=== PATIENT | male | born 1935 | race Caucasian/White ===

== ENCOUNTER 2016-03-29 23:26 | Emergency (ER) | payer OTHER, BC ==
[2016-03-30 00:33] LABS: % IMMATURE GRANULYOCYTES 0.3 % (0.0-1.1); ABSOLUTE IMMATURE GRANULOCYTES 0.03 10^3/uL (0.00-0.10); ADD DIFF? NO; ADD MORPH? NO; ADD SCAN? NO; ATYPICAL LYMPHOCYTE FLAG 0 (0-99); FRAGMENT RBC FLAG 0 (0-99); HEMATOCRIT 49.5 % (40.0-51.0); HEMOGLOBIN 17.2 g/dL (13.7-17.5); LEFT SHIFT FLG 0 (0-99); LIPEMIA HEMOLYSIS FLAG 90 (0-99); MEAN CELL HEMOGLOBIN 31.7 pg (27.9-34.1); MEAN CELL HEMOGLOBIN CONCENTR. 34.7 g/dL (32.4-36.7); MEAN CELL VOLUME 91.2 fL (81.5-99.8); MEAN PLATELET VOLUME 9.5 fL (8.7-11.7); PLATELET CLUMPS FLAG 0 (0-99); PLATELET COUNT 218 10^3/uL (150-400); RED BLOOD CELL COUNT 5.43 10^6/uL (4.40-6.38); RED CELL DISTRIBUTION WIDTH 13.2 % (11.5-15.2)
[2016-03-30 00:55] LABS: COLOR YELLOW; LEUKOCYTE ESTERASE,URINE TRACE (NEGATIVE); NITRITE,URINE NEGATIVE (NEGATIVE)
[2016-03-30 00:58] LABS: MUCUS TRACE /lpf (NONE-1+); RBC,URINE 50-182 /hpf (0-3); WBC,URINE 15-25 /hpf (0-3)
[2016-03-30 01:01] LABS: ANION GAP 9 mEq/L (8-16); CALCIUM 8.8 mg/dL (8.5-10.4); CARBON DIOXIDE 26 mEq/l (22-31); CHLORIDE 107 mEq/L (97-110); CREATININE 0.8 mg/dL (0.7-1.3); GLOMERULAR FILTRATION RATE > 60; GLUCOSE 132 mg/dL (70-100); POTASSIUM 4.5 mEq/L (3.5-5.2); SODIUM 142 mEq/L (134-144)
[2016-03-30] MEDS ORDERED: OXYCODONE/APAP 5/325MG PREPACK#4 BTL TAKEHOME ONE (02:30)
--- NOTE | 2016-03-30 02:31 | EDPHY ---
HPI/HX/ROS/PE/MDM Narrative: Chief complaint left-sided abdominal pain HPI: 72-year-old male with a past medical history of renal calculi woke this morning with left-sided abdominal pain. Pain was up to a 7 or 8/10. Over the last 3 or 4 hours it has gotten improved. States that now he is not currently having pain. Pain was nonradiating. No fevers or chills. Some nausea no vomiting. No diarrhea. No chest pain or shortness of breath. No hematuria or urinary symptoms. ROS: 10 point Review of Systems is negative except as noted in the HPI. Physical exam: Gen: Awake, Alert, No Distress HEENT: Nose: no rhinorrhea Eyes: PERRLA, EOMI Mouth: Moist mucosa Neck: Supple, no JVD Chest: nontender, lungs clear to auscultation Heart: S1, S2 normal, no murmur Abd: Soft, non-tender, no guarding Back: no CVA tenderness, no midline tenderness Ext: no edema, non-tender Skin: no rash Neuro: CN II-XII intact, Sensation grossly intact, Strength 5/5 in bilateral upper and lower extremities ED Course: CT abdomen and pelvis: Interpreted by Radiology. He has a distal left ureteral stone that is 5.3 mm with mild hydronephrosis. This is 2 cm above the UVJ. 80-year-old male with left-sided abdominal pain and flank pain. He does have hematuria on his UA. There is no urine infection. Will obtain CT scan for re- evaluation. CT scan noted for positive for renal calculi. There is no infection. Patient is pain-free at this time. He has a urologist to follow up with. Will discharge with oral analgesia follow-up with his urologist, return for worsening. - Data Points Laboratory Results: Laboratory Results 03/30/16 00:15 03/30/16 00:15 03/30/16 03/30/16 00:35 00:15 WBC 11.01 H 10^3/uL (3.80-9.50) RBC 5.43 10^6/uL (4.40-6.38) Hgb 17.2 g/dL (13.7-17.5) Hct 49.5 % (40.0-51.0) MCV 91.2 fL (81.5-99.8) MCH 31.7 pg (27.9-34.1) MCHC 34.7 g/dL (32.4-36.7) RDW 13.2 % (11.5-15.2) Plt Count 218 10^3/uL (150-400) MPV 9.5 fL (8.7-11.7) Neut % (Auto) 91.5 H % (39.3-74.2) Lymph % (Auto) 5.3 L % (15.0-45.0) [place] % (Auto) 2.4 L % (4.5-13.0) Eos % (Auto) 0.1 L % (0.6-7.6) Baso % (Auto) 0.4 % (0.3-1.7) Nucleat RBC Rel Count 0.0 % (0.0-0.2) Absolute Neuts (auto) 10.09 H 10^3/uL (1.70-6.50) Absolute Lymphs (auto) 0.58 L 10^3/uL (1.00-3.00) Absolute Monos (auto) 0.26 L 10^3/uL (0.30-0.80) Absolute Eos (auto) 0.01 L 10^3/uL (0.03-0.40) Absolute Basos (auto) 0.04 10^3/uL (0.02-0.10) Absolute Nucleated RBC 0.00 10^3/uL (0-0.01) Immature Gran % 0.3 % (0.0-1.1) Immature Gran # 0.03 10^3/uL (0.00-0.10) Sodium 142 mEq/L (134-144) Potassium 4.5 mEq/L (3.5-5.2) Chloride 107 mEq/L (97-110) Carbon Dioxide 26 mEq/l (22-31) Anion Gap 9 mEq/L (8-16) BUN 24 H mg/dL (7-23) Creatinine 0.8 mg/dL (0.7-1.3) Estimated GFR > 60 Glucose 132 H mg/dL (70-100) Calcium 8.8 mg/dL (8.5-10.4) Urine Color YELLOW Urine Appearance HAZY Urine pH 5.0 (5.0-7.5) Ur Specific [place] 1.025 (1.002-1.030) Urine Protein 1+ H (NEGATIVE) Urine Ketones 1+ H (NEGATIVE) Urine Blood 3+ H (NEGATIVE) Urine Nitrate NEGATIVE (NEGATIVE) Urine Bilirubin NEGATIVE (NEGATIVE) Urine Urobilinogen NEGATIVE EU (0.2-1.0) Ur Leukocyte Esterase TRACE H (NEGATIVE) Urine RBC 50-182 H /hpf (0-3) Urine WBC 15-25 H /hpf (0-3) Ur Epithelial Cells Not Reported Calcium Oxalate Crystal PRESENT /hpf (NONE-1+) Urine Mucus TRACE /lpf (NONE-1+) Urine Glucose NEGATIVE (NEGATIVE) General Time Seen by Provider: 03/30/16 00:36 Initial Vital Signs: Initial Vital Signs Temperature (C) 36.6 C 03/30/16 00:00 Heart Rate 76 03/30/16 00:00 Respiratory Rate 18 03/30/16 00:00 Blood Pressure 124/70 H 03/30/16 00:00 O2 Sat (%) 93 03/30/16 00:00 O2 Delivery Mode Room Air Allergies/Adverse Reactions: aspirin Allergy (Verified 06/16/15 09:56) Other-Enter Comments Home Medications: Medication Instructions Recorded Acetaminophen [Tylenol 325 mg tab 325 mg PO Q6 PRN 05/12/11 (PHA)] Acyclovir [Zovirax 400 mg (PHA)] 400 mg PO BID 05/12/11 Doxylamine Succinate 25 mg PO HS PRN 05/12/11 Losartan Potassium [Cozaar] 25 mg PO DAILY18 05/12/11 Pravastatin Sodium 20 mg PO SUTUTHSA@08 05/12/11 Fish Oil/Dha/Epa [Fish Oil 1,200 1,200 mg PO DAILY 05/18/11 mg Fish Oil] Pantoprazole Sodium 40 mg PO MOWEFR@08 05/18/11 Pravastatin Sodium 40 mg PO MOWEFR@08 05/18/11 Cephalexin [Keflex (RX)] 500 mg PO QID 05/25/11 Azithromycin [Zithromax] 250 mg PO DAILY #4 tab 12/13/11 oxyCODONE/APAP 5/325 [Percocet 1 - 2 tab PO Q4H PRN #14 tab 05/16/14 5/325 (RX)] oxyCODONE/APAP 5/325 [Percocet 1 - 2 tab PO Q4H PRN #10 tab 03/30/16 5/325 (*)] Departure - Departure Disposition: Home, Routine, Self-Care Clinical Impression: Renal colic on left side Condition: Good Instructions: Oxycodone/Acetaminophen (By mouth), Kidney Stones (ED) Additional Instructions: Follow up with urologist for re-evaluation. Please call later today to schedule an appointment. Return to the emergency depart for increasing pain, fevers, chills, nausea, vomiting, or any other concerns. Referrals: Aureliano Azevedo MD [Primary Care Provider] - As per Instructions Prescriptions: oxyCODONE/APAP 5/325 [Percocet 5/325 (*)] 1 - 2 tab PO Q4H PRN #10 tab PRN Reason: Pain, Severe
[2016-03-30 02:46] VITALS: BP 124/67; PULSE 72; RESP 16; TEMP 98.1; O2SAT 94
--- NOTE | 2016-03-30 08:57 | CT ---
CT Scan of the Urinary Tract (Abdomen and Pelvis Without Contrast) at 0153 hours Clinical Indications: Left flank pain. History of renal calculi. Comparison: January 2016. Technique: Multidetector helical CT imaging was performed from the kidneys to the urinary bladder wi thout contrast. Dose reduction techniques were utilized. Findings: Abdomen: Mild atelectasis and scarring are seen in both lung bases, left greater than right. There is a small hiatal hernia. Heart size is within normal limits. No evidence for pericardial effusion. No focal liver lesion is identified. Gallbladder is unremarkable. Spleen is unremarkable. Both adrenal g lands are normal in size. There is mild hydronephrosis and perinephric stranding of the left kidney. Large renal calculus is seen nonobstructive in the inferior pole of the left kidney measuring 13 mm. No evidence for right nephrolithiasis. No evidence for right hydronephrosis. Dilatation of proximal l eft ureter. Pelvis: There is a 5.3 mm calculus in the distal left ureter just proximal to the ureterovesical junc tion. No significant free fluid in the pelvis. No evidence for diverticulosis. No evidence for small bowel obstruction. Multilevel degenerative change is seen in the lumbar spine. Vascular calcification s are seen in the abdominal aorta without evidence for aneurysmal dilatation. Impression: 1. 5.3 mm calculus in the distal left ureter with mild hydronephrosis and hydroureter. Nonobstructive calculus inferior pole left kidney. 2. Other chronic findings as above. Results called to Dr. Elliot Chaudhary at 0212 hours on 30 March 2016. Attention: This CT examination is specifically designed to evaluate patients who are clinically susp ected of having acute obstructive uropathy. This examination does not use radiographic contrast, and as such, provides only a limited evaluation of the abdomen, pelvis and retroperitoneum. If there i s further clinical suspicion for pathological conditions other than obstructive uropathy, a complete CT evaluation of the abdomen and pelvis utilizing intravenous, oral, and rectal contrast should be co nsidered.
== END 2016-03-30 02:47 | disposition home or self-care (01) ==
DX: N23 Unspecified renal colic (principal)

== ENCOUNTER → 2016-05-26 | Outpatient (CLI) | payer OTHER, BC | LOC: FIMAGING 07:34 | PROVIDERS: ATTEND Specialist | DX: N20.0 Calculus of kidney (principal) ==

== ENCOUNTER → 2016-09-17 | Outpatient (CLI) | payer OTHER, BC | LOC: FIMAGING 07:51 | PROVIDERS: ATTEND Specialist | DX: N20.0 Calculus of kidney (principal) ==

== ENCOUNTER → 2016-11-02 | Outpatient (CLI) | payer OTHER, BC ==
[~2016-11-02] MED LIST: IOPAMIDOL (ISOVUE-300) 100 ML BTL ONE
== END ==
LOC: CIMAGING 08:08
PROVIDERS: ATTEND Specialist
DX: N20.0 Calculus of kidney (principal); R91.1 Solitary pulmonary nodule; K57.30 Diverticulosis of large intestine without perforation or abscess without bleeding
CPT/HCPCS: 74178; Q9967

== ENCOUNTER → 2017-02-22 | Outpatient (CLI) | payer OTHER, BC | LOC: FIMAGING 08:17 | PROVIDERS: ATTEND Specialist | DX: R93.8 Abnormal findings on diagnostic imaging of other specified body structures (principal) ==

== ENCOUNTER → 2017-09-23 | Outpatient (CLI) | payer OTHER, BC | LOC: FIMAGING 11:22 | PROVIDERS: ATTEND Internal Medicine Hematology & Oncology | DX: R91.8 Other nonspecific abnormal finding of lung field (principal) ==

== ENCOUNTER → 2018-05-08 | Outpatient (CLI) | payer OTHER | LOC: BHFA 08:30 | PROVIDERS: ATTEND Internal Medicine Cardiovascular Disease | DX: I35.0 Nonrheumatic aortic (valve) stenosis (principal) ==

== ENCOUNTER → 2018-06-03 | Outpatient (CLI) | payer OTHER, BC | LOC: FIMAGING 16:16 | PROVIDERS: ATTEND Internal Medicine Hematology & Oncology | DX: N50.3 Cyst of epididymis (principal); N50.9 Disorder of male genital organs, unspecified; C83.00 Small cell B-cell lymphoma, unspecified site; C7A.025 Malignant carcinoid tumor of the sigmoid colon ==